=== PATIENT | female | born 1980 | race Caucasian/White ===

== ENCOUNTER 2020-12-23 01:53 | Inpatient (IN) | payer OTHER ==
[~2020-12-23] VITALS: Ht 177.8 cm; Wt 70.2 kg
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
--- NOTE | 2020-12-23 02:22 | NUR ---
PT GIVEN 10MG OF IV MORPHINE, 4MG OF IV ZOFRAN, AND 50MCGS OF IV FANTANYL X2
--- NOTE | 2020-12-23 03:10 | NUR ---
PT LAYING IN BED, sAhley/MOISES, VSS, FRIEND AT BEDSIDE, MD AT BEDSIDE TO DISCUSS POC
[2020-12-23] MEDS ORDERED: MORPHINE SULFATE 4 MG/ML, 1ML IVPush PRN (03:30)
[2020-12-23] MEDS ORDERED: MORPHINE SULFATE 4 MG/ML, 1ML ONE ×2 (03:30→04:03)
[2020-12-23] MEDS ORDERED: PLEASE ENTER ALLERGIES MC SCH (04:00)
[2020-12-23] MEDS ORDERED: LORazepam 2 MG/ML, 1ML ONE (04:03)
--- NOTE | 2020-12-23 04:32 | NUR ---
Hospitalist verbal ordered 2mg morphine and 1mg ativan for pt to aid in splint application. Medicatd per verbal orders, pt tansfered to floor and tolerated splint well.
[2020-12-23 04:52] VITALS: BP 127/86
[2020-12-23] MEDS ORDERED: LORazepam 2 MG/ML, 1ML IVPush ONE (05:00)
[2020-12-23] MEDS ORDERED: MORPHINE SULFATE 4 MG/ML, 1ML IVPush ONE (05:00)
[2020-12-23] MEDS: LACTATED RINGERS 1,000 ML IV SCH ×2 (06:18→13:24)
[2020-12-23] MEDS: morphine SULFATE 10 MG/ML, 1ML IVPush PRN ×3 (06:36→13:24)
[2020-12-23] MEDS: CYCLOBENZAPRINE 10 MG TABLET PO PRN ×3 (06:38→21:29)
[2020-12-23 07:28] LABS: BASOPHILS % (AUTO) 1 % (0-1); EOSINOPHILS % (AUTO) 0 % (1-7); LYMPHOCYTES % (AUTO) 15 % (22-44); MEAN CORPUSCULAR HEMOGLOBIN 29.3 pg (27.0-34.8); MEAN CORPUSCULAR HGB CONC 33.5 g/dL (32.4-35.8); MEAN PLATELET VOLUME 8.4 fL (7.4-10.4); MONOCYTES % (AUTO) 9 % (2-9); NEUTROPHILS % (AUTO) 75 % (42-75); PLATELET COUNT 285 x10^3/uL (130-400); RED BLOOD COUNT 4.13 x10^6/uL (3.82-5.3); RED CELL DISTRIBUTION WIDTH 13.4 % (9.6-15.2)
[2020-12-23 07:30] VITALS: BP 115/80
[2020-12-23 07:45] LABS: INTERNATIONAL NORMALIZED RATIO 1.01 (0.93-1.1); PROTHROMBIN TIME 10.8 Seconds (9.6-11.5)
[2020-12-23] MEDS: ACETAMINOPHEN 325 MG TABLET PO PRN (10:13)
[2020-12-23 12:49] VITALS: BP 122/64
[2020-12-23] MEDS: OXYcodone/APAP 10/325MG TABLET PO PRN ×2 (17:23→23:25)
[2020-12-23 18:56] VITALS: BP 124/85
[2020-12-24 01:35] VITALS: BP 117/75
[2020-12-24] MEDS: LACTATED RINGERS 1,000 ML IV SCH ×2 (02:30→15:44)
[2020-12-24] MEDS: morphine SULFATE 10 MG/ML, 1ML IVPush PRN ×2 (03:53→17:39)
[2020-12-24 05:43] LABS: BASOPHILS % (AUTO) 1 % (0-1); EOSINOPHILS % (AUTO) 2 % (1-7); LYMPHOCYTES % (AUTO) 18 % (22-44); MEAN CORPUSCULAR HEMOGLOBIN 29.1 pg (27.0-34.8); MEAN PLATELET VOLUME 9.2 fL (7.4-10.4); MONOCYTES % (AUTO) 14 % (2-9); NEUTROPHILS % (AUTO) 66 % (42-75); PLATELET COUNT 262 x10^3/uL (130-400); RED BLOOD COUNT 4.24 x10^6/uL (3.82-5.3); RED CELL DISTRIBUTION WIDTH 13.4 % (9.6-15.2)
[2020-12-24] MEDS: OXYcodone/APAP 10/325MG TABLET PO PRN (05:45)
[2020-12-24] MEDS: CYCLOBENZAPRINE 10 MG TABLET PO PRN ×2 (05:50→15:43)
[2020-12-24 05:51] LABS: ALANINE AMINOTRANSFERASE 16 U/L (12-78); ALBUMIN 2.9 g/dL (3.4-5.0); CALCIUM 8.5 mg/dL (8.5-10.1); CREATININE 0.74 mg/dL (0.55-1.02)
[2020-12-24 05:53] LABS: ALKALINE PHOSPHATASE 75 U/L (45-117); BILIRUBIN,TOTAL 0.7 mg/dL (0.2-1.0); TOTAL PROTEIN 6.6 g/dL (6.4-8.2)
[2020-12-24 06:08] LABS: ANION GAP 5 mmol/L (5-15); CHLORIDE 105 mmol/L (98-107)
[2020-12-24 07:10] VITALS: BP 126/68
[2020-12-24] MEDS: OXYcodone IR 5MG TABLET PO PRN ×3 (11:13→20:30)
[2020-12-24 13:59] VITALS: BP 128/82
[2020-12-24] MEDS ORDERED: BISACODYL 10 MG SUPP PR PRN (19:30)
[2020-12-24 19:53] VITALS: BP 120/80
[2020-12-24] MEDS: ACETAMINOPHEN 325 MG TABLET PO PRN (20:30)
[2020-12-24] MEDS: GABAPENTIN 100 MG CAPSULE PO SCH (22:05)
[2020-12-24] MEDS: POLYETHYLENE GLYCOL 17 GM PACKET PO SCH (22:05)
[2020-12-25] MEDS: ACETAMINOPHEN 325 MG TABLET PO PRN ×3 (01:19→19:48)
[2020-12-25] MEDS: CYCLOBENZAPRINE 10 MG TABLET PO PRN ×2 (01:20→15:59)
[2020-12-25] MEDS: OXYcodone IR 5MG TABLET PO PRN ×3 (01:20→19:49)
[2020-12-25] MEDS: LACTATED RINGERS 1,000 ML IV SCH ×2 (01:20→08:00)
[2020-12-25 02:34] VITALS: BP 101/63
[2020-12-25] MEDS: morphine SULFATE 10 MG/ML, 1ML IVPush PRN ×4 (05:24→14:44)
[2020-12-25 05:41] LABS: HCG UR SG 1.006 (1.003-1.030)
[2020-12-25 06:05] LABS: BASOPHILS % (AUTO) 1 % (0-1); EOSINOPHILS % (AUTO) 3 % (1-7); LYMPHOCYTES % (AUTO) 30 % (22-44); MEAN CORPUSCULAR HEMOGLOBIN 29.4 pg (27.0-34.8); MEAN CORPUSCULAR HGB CONC 33.3 g/dL (32.4-35.8); MEAN PLATELET VOLUME 8.9 fL (7.4-10.4); MONOCYTES % (AUTO) 14 % (2-9); NEUTROPHILS % (AUTO) 53 % (42-75); PLATELET COUNT 281 x10^3/uL (130-400); RED BLOOD COUNT 4.15 x10^6/uL (3.82-5.3); RED CELL DISTRIBUTION WIDTH 13.3 % (9.6-15.2)
[2020-12-25 06:18] LABS: ANION GAP 4 mmol/L (5-15); CALCIUM 8.4 mg/dL (8.5-10.1); CHLORIDE 105 mmol/L (98-107); CREATININE 0.66 mg/dL (0.55-1.02)
[2020-12-25 07:24] VITALS: BP 106/70
[2020-12-25] MEDS: POLYETHYLENE GLYCOL 17 GM PACKET PO SCH ×2 (09:00→19:53)
[2020-12-25] MEDS: GABAPENTIN 100 MG CAPSULE PO SCH ×3 (09:08→19:54)
[2020-12-25] MEDS ORDERED: POTASSIUM CHLORIDE 40 MEQ in SODIUM CHLORIDE 0.9% 500 ML IV ONE (10:30)
[2020-12-25] MEDS ORDERED: CHLORHEXIDINE 15 ML UDC ONE (11:47)
[2020-12-25] MEDS ORDERED: CHLORHEXIDINE 15 ML UDC PO ONE (12:00)
[2020-12-25] MEDS ORDERED: NEOSPORIN OINT, 15GM ONE (12:00)
[2020-12-25] MEDS ORDERED: BUPIVACAINE/PF 0.5% ONE (12:00)
[2020-12-25] MEDS ORDERED: EPINEPHRINE 1 MG/ML, 1ML ONE (12:01)
[2020-12-25] MEDS ORDERED: PROPOFOL 10 MG/ML, 20ML ONE (12:01)
[2020-12-25] MEDS ORDERED: ROCURONIUM 10MG/ML,5ML ONE (12:02)
[2020-12-25] MEDS ORDERED: LIDOCAINE-MPF 2% ,5ML ONE (12:02)
[2020-12-25] MEDS ORDERED: CEFAZOLIN 1,000 MG ONE (12:24)
[2020-12-25] MEDS ORDERED: ONDANSETRON 2MG/ML, 2ML ONE (12:34)
[2020-12-25] MEDS ORDERED: DEXAMETHASONE 4 MG/ML, 1ML ONE (12:34)
[2020-12-25] MEDS ORDERED: FENTANYL PF 100 MCG/2ML ONE ×4 (12:35→14:34)
[2020-12-25] MEDS ORDERED: OXYcodone 5 MG/5 ML ORAL.SOL UDC PO PRN (13:00)
[2020-12-25] MEDS ORDERED: ACETAMINOPHEN 325 MG TABLET PO PRN (13:00)
[2020-12-25] MEDS ORDERED: PROMETHAZINE 25 MG/ML, 1ML IVPush PRN (13:00)
[2020-12-25] MEDS ORDERED: OXYcodone 5 MG/5 ML ORAL.SOL UDC ONE (14:18)
[2020-12-25] MEDS: FENTANYL PF 100 MCG/2ML IV PRN ×3 (14:23→14:34)
[2020-12-25] MEDS ORDERED: morphine SULFATE 10 MG/ML, 1ML ONE (14:34)
[2020-12-25] MEDS ORDERED: LORazepam 2 MG/ML, 1ML ONE (14:43)
[2020-12-25] MEDS ORDERED: HYDROmorphone 2 MG/ML, 1ML ONE (14:43)
[2020-12-25] MEDS: HYDROmorphone 1 MG/ML, 1ML INJ IVPush PRN ×3 (14:48→15:06)
[2020-12-25] MEDS ORDERED: LORazepam 2 MG/ML, 1ML IVPush PRN (15:00)
[2020-12-25 17:30] VITALS: BP 121/77
[2020-12-25] MEDS: CEFAZOLIN PMX 1GM/50ML 50 ML IV SCH (19:53)
[2020-12-25 20:10] VITALS: BP 136/94
[2020-12-25 23:41] VITALS: BP 114/82
[2020-12-26] MEDS: OXYcodone IR 5MG TABLET PO PRN ×5 (00:47→23:29)
[2020-12-26] MEDS: CYCLOBENZAPRINE 10 MG TABLET PO PRN ×2 (00:48→12:20)
[2020-12-26] MEDS: ACETAMINOPHEN 325 MG TABLET PO PRN ×5 (00:48→23:29)
[2020-12-26] MEDS: morphine SULFATE 10 MG/ML, 1ML IVPush PRN ×5 (00:55→10:34)
[2020-12-26] MEDS: LACTATED RINGERS 1,000 ML IV SCH ×2 (00:56→08:20)
[2020-12-26] MEDS: CEFAZOLIN PMX 1GM/50ML 50 ML IV SCH (03:46)
[2020-12-26 03:51] VITALS: BP 117/72
[2020-12-26 05:52] LABS: BASOPHILS % (AUTO) 0 % (0-1); EOSINOPHILS % (AUTO) 0 % (1-7); LYMPHOCYTES % (AUTO) 14 % (22-44); MEAN CORPUSCULAR HEMOGLOBIN 29.2 pg (27.0-34.8); MEAN CORPUSCULAR HGB CONC 33.3 g/dL (32.4-35.8); MONOCYTES % (AUTO) 12 % (2-9); NEUTROPHILS % (AUTO) 74 % (42-75); PLATELET COUNT 305 x10^3/uL (130-400); RED BLOOD COUNT 3.98 x10^6/uL (3.82-5.3); RED CELL DISTRIBUTION WIDTH 13.1 % (9.6-15.2)
[2020-12-26 06:04] LABS: ANION GAP 5 mmol/L (5-15); CALCIUM 8.7 mg/dL (8.5-10.1); CHLORIDE 104 mmol/L (98-107); CREATININE 0.73 mg/dL (0.55-1.02)
[2020-12-26] MEDS: ENOXAPARIN 40 MG/0.4 ML SQ SCH (07:00)
[2020-12-26] MEDS ORDERED: KETOROLAC 15 MG/1ML IVPush SCH (07:30)
[2020-12-26 07:45] VITALS: BP 110/72
[2020-12-26] MEDS: GABAPENTIN 100 MG CAPSULE PO SCH ×2 (08:19→21:23)
[2020-12-26] MEDS: DIAZEPAM 5 MG TABLET PO PRN ×2 (08:19→21:23)
[2020-12-26] MEDS: POLYETHYLENE GLYCOL 17 GM PACKET PO SCH ×2 (09:00→21:22)
[2020-12-26] MEDS ORDERED: POTASSIUM CHLORIDE 40 MEQ in SODIUM CHLORIDE 0.9% 500 ML IV ONE (09:30)
[2020-12-26] MEDS: KETOROLAC 30 MG/1 ML IVPush SCH ×2 (10:34→18:11)
[2020-12-26 12:33] VITALS: BP 112/78
[2020-12-26 20:22] VITALS: BP 115/72
[2020-12-27 00:49] VITALS: BP 104/65
[2020-12-27] MEDS: CYCLOBENZAPRINE 10 MG TABLET PO PRN ×3 (01:42→22:40)
[2020-12-27] MEDS: KETOROLAC 30 MG/1 ML IVPush SCH ×4 (01:43→19:20)
[2020-12-27] MEDS: LACTATED RINGERS 1,000 ML IV SCH ×2 (01:45→12:19)
[2020-12-27 05:54] LABS: BASOPHILS % (AUTO) 1 % (0-1); EOSINOPHILS % (AUTO) 2 % (1-7); LYMPHOCYTES % (AUTO) 23 % (22-44); MEAN CORPUSCULAR HEMOGLOBIN 29.6 pg (27.0-34.8); MEAN CORPUSCULAR HGB CONC 33.4 g/dL (32.4-35.8); MEAN PLATELET VOLUME 9.7 fL (7.4-10.4); MONOCYTES % (AUTO) 11 % (2-9); NEUTROPHILS % (AUTO) 64 % (42-75); PLATELET COUNT 314 x10^3/uL (130-400); RED BLOOD COUNT 3.98 x10^6/uL (3.82-5.3); RED CELL DISTRIBUTION WIDTH 13.1 % (9.6-15.2)
[2020-12-27 05:58] LABS: CALCIUM 8.9 mg/dL (8.5-10.1); CHLORIDE 105 mmol/L (98-107)
[2020-12-27 06:02] LABS: ANION GAP 4 mmol/L (5-15); CREATININE 0.75 mg/dL (0.55-1.02)
[2020-12-27] MEDS: ACETAMINOPHEN 325 MG TABLET PO PRN ×3 (06:28→15:35)
[2020-12-27] MEDS: OXYcodone IR 5MG TABLET PO PRN ×4 (06:29→22:40)
[2020-12-27] MEDS: ENOXAPARIN 40 MG/0.4 ML SQ SCH (06:31)
[2020-12-27 07:55] VITALS: BP 119/79
[2020-12-27] MEDS: POLYETHYLENE GLYCOL 17 GM PACKET PO SCH ×2 (08:13→20:52)
[2020-12-27] MEDS: GABAPENTIN 100 MG CAPSULE PO SCH ×3 (08:13→20:52)
[2020-12-27] MEDS: DIAZEPAM 5 MG TABLET PO PRN (08:18)
[2020-12-27 14:00] VITALS: BP 116/75
[2020-12-27 19:00] VITALS: BP 107/72
[2020-12-27] MEDS ORDERED: CYCL10TA2 PO (22:03)
[2020-12-27] MEDS ORDERED: ACET325T26 PO (22:03)
[2020-12-27] MEDS ORDERED: GABA100C PO (22:04)
[2020-12-27] MEDS ORDERED: MORP-29 PO (22:12)
[2020-12-27] MEDS ORDERED: POLY17PO5 PO (22:12)
[2020-12-27] MEDS ORDERED: OXYC15TA3 PO (22:12)
[2020-12-28] MEDS: DIAZEPAM 5 MG TABLET PO PRN (00:06)
[2020-12-28 00:35] VITALS: BP 123/70
[2020-12-28] MEDS: LACTATED RINGERS 1,000 ML IV SCH (01:00)
[2020-12-28] MEDS: KETOROLAC 30 MG/1 ML IVPush SCH (02:05)
[2020-12-28 05:22] LABS: CHLORIDE 105 mmol/L (98-107)
[2020-12-28 05:27] LABS: BASOPHILS % (AUTO) 1 % (0-1); EOSINOPHILS % (AUTO) 3 % (1-7); LYMPHOCYTES % (AUTO) 18 % (22-44); MEAN CORPUSCULAR HEMOGLOBIN 29.7 pg (27.0-34.8); MEAN CORPUSCULAR HGB CONC 33.7 g/dL (32.4-35.8); MEAN PLATELET VOLUME 9.3 fL (7.4-10.4); MONOCYTES % (AUTO) 10 % (2-9); NEUTROPHILS % (AUTO) 68 % (42-75); PLATELET COUNT 310 x10^3/uL (130-400); RED BLOOD COUNT 3.82 x10^6/uL (3.82-5.3)
[2020-12-28 05:31] LABS: ANION GAP 7 mmol/L (5-15); CALCIUM 8.7 mg/dL (8.5-10.1); CREATININE 0.67 mg/dL (0.55-1.02)
[2020-12-28] MEDS: ENOXAPARIN 40 MG/0.4 ML SQ SCH (06:20)
[2020-12-28] MEDS: OXYcodone IR 5MG TABLET PO PRN ×2 (06:41→11:22)
[2020-12-28 07:27] VITALS: BP 123/85
[2020-12-28] MEDS: POLYETHYLENE GLYCOL 17 GM PACKET PO SCH (07:58)
[2020-12-28] MEDS: GABAPENTIN 100 MG CAPSULE PO SCH (07:58)
[2020-12-28] MEDS: ACETAMINOPHEN 325 MG TABLET PO PRN (11:23)
[2020-12-28] MEDS ORDERED: ASPI81TA45 PO (12:21)
[2020-12-28 12:29] VITALS: BP 122/86
== END 2020-12-28 14:03 | disposition home or self-care (01) | DRG 493 ==
LOC: ED 03:46 → OBSVTOIN 04:00 → EDIP 04:00 → INTOOBSV 04:00 → 4NE 04:49
PROVIDERS: ADMIT Internal Medicine; ATTEND Internal Medicine
PROC: 2W3RX1Z Immobilization of Left Lower Leg using Splint (ICD-10-PCS; 2020-12-23)
PROC: 0QSH04Z Reposition Left Tibia with Internal Fixation Device, Open Approach (ICD-10-PCS; principal; 2020-12-25 12:00)
DX: S82.142A Displaced bicondylar fracture of left tibia, initial encounter for closed fracture (principal); M25.00 Hemarthrosis, unspecified joint; D72.828 Other elevated white blood cell count; F12.90 Cannabis use, unspecified, uncomplicated; F17.200 Nicotine dependence, unspecified, uncomplicated; S82.832A Other fracture of upper and lower end of left fibula, initial encounter for closed fracture; D72.829 Elevated white blood cell count, unspecified; S80.12XA Contusion of left lower leg, initial encounter; Z20.822 Contact with and (suspected) exposure to COVID-19; V18.4XXA Pedal cycle driver injured in noncollision transport accident in traffic accident, initial encounter; Y93.55 Activity, bike riding; Y93.89 Activity, other specified; Y92.89 Other specified places as the place of occurrence of the external cause; Y99.8 Other external cause status
CPT/HCPCS: 36415; 73560; 73590; 76000; 96374; 96375; 96376; 99285; J3490; S0020; 80048; 80053; 81025; 83735; 84100; 85025; 85610; 87635; 93005; C1713; J0171; J0690; J1100; J1170; J1650; J1885; J2405; J2704; J3010; J3480; G0378; J2060; J2270; J7040; J7120